=== PATIENT | female | born 2000 | race Two or more races ===

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

== ENCOUNTER 2018-04-26 11:06 | Emergency (ER) | payer SELFPAY ==
[2018-04-26 11:23] VITALS: TEMP 98.2; BMI 26.6
[2018-04-26] MEDS ORDERED: IBUPROFEN 600 MG TABLET (FP) PO ONE ×2 (12:53→12:59)
--- NOTE | 2018-04-26 13:00 | PDOC ---
History of Present Illness - General Chief Complaint: Wound Stated Complaint: BOIL ON LT BUTTCHECK Time Seen by Provider: 04/26/18 11:51 History Source: Patient Exam Limitations: No Limitations - History of Present Illness Initial Comments: 04/26/18 13:14 Patient is a 17-year-old female with no past medical history who presents to the ER today for 4 days of an abscess to her left butt cheek. Patient states that it hurts to sit down and she cannot find a comfortable position. She states she has tried warm water soaks at home with little relief of her symptoms. Patient is currently on her menstrual cycle. Denies fevers, chills, nausea, vomiting, diarrhea, frequency, urgency and hematuria. Past History - Travel Traveled outside of the country in the last 30 days: No Close contact w/someone who was outside of country & ill: No - Past Medical History Allergies/Adverse Reactions: Allergies Allergy/AdvReac Type Severity Reaction Status Date / Time No Known Allergies Allergy Verified 04/26/18 11:20 Home Medications: Ambulatory Orders Cephalexin Monohydrate [Keflex -] 500 mg PO BID #14 capsule 04/26/18 Ibuprofen 600 mg PO Q6H #30 tablet 04/26/18 Sulfamethoxazole/Trimethoprim [Bactrim Ds -] 1 tab PO BID #14 tablet 04/26/18 Asthma: Yes COPD: No - Suicide/Smoking/Psychosocial Hx Smoking History: Unknown if ever smoked Have you smoked in the past 12 months: No Hx Alcohol Use: No Drug/Substance Use Hx: No Review of Systems - Review of Systems Able to Perform ROS?: Yes Comments:: 04/26/18 13:15 CONSTITUTIONAL: Absent: fever, chills, diaphoresis, generalized weakness, malaise, loss of appetite GENITOURINARY: Absent: dysuria, frequency, urgency, hesitancy, hematuria, flank pain, genital pain MUSCULOSKELETAL: Absent: myalgia, arthralgia, joint swelling SKIN: Present: abscess Absent: rash, itching, pallor HEMATOLOGIC/IMMUNOLOGIC: Absent: easy bleeding, easy bruising, lymphadenopathy, frequent infections NEUROLOGIC: Absent: headache, focal weakness or paresthesias, dizziness, unsteady gait, seizure, mental status changes, bladder or bowel incontinence PSYCHIATRIC: Absent: anxiety, depression, suicidal or homicidal ideation, hallucinations. Is the patient limited Citizen Of [place] proficient: No *Physical Exam - Vital Signs Last Vital Signs Temp Pulse Resp BP Pulse Ox 98.2 F 85 18 112/61 100 04/26/18 11:20 04/26/18 11:20 04/26/18 11:20 04/26/18 11:20 04/26/18 11:20 - Physical Exam Comments: 04/26/18 13:20 GENERAL: Well developed, well nourished. Awake and alert. No acute distress. EXTREMITIES: No cyanosis. No clubbing. No edema. No calf tenderness. SKIN: 2cm round abscess to the L gluteal fold with 2cm of surrounding cellulitis Warm and dry. Normal capillary refill. No jaundice. NEUROLOGICAL: Alert, awake, appropriate. Cranial nerves 2-12 intact. No deficits to light touch and temperature in face, upper extremities and lower extremities. No motor deficits in the in face, upper extremities and lower extremities. Normoreflexic in the upper and lower extremities. Normal speech. Toes are down- going bilaterally. Gait is normal without ataxia. PSYCHIATRIC: Cooperative. Good eye contact. Appropriate mood and affect. Moderate Sedation - Procedure Monitoring Vital Signs: Procedure Monitoring Vital Signs Temperature 98.2 F 04/26/18 11:20 Pulse Rate 85 04/26/18 11:20 Respiratory Rate 18 04/26/18 11:20 Blood Pressure 112/61 04/26/18 11:20 O2 Sat by Pulse Oximetry (%) 100 04/26/18 11:20 Procedures - Incision and Drainage I&D Site: Left: Buttock Anesthesia: 1% Lidocaine Volume(ml): 6 Blade Size: 11 Attempts: 1 Iodinated Packin/4 in Plain Packing: No Medical Decision Making - Medical Decision Making 04/26/18 13:22 A: Patient is a 17-year-old female with no past medical history who presents to the ER today for a 2cm round abscess to her left buttock for 4 days. P: Abscess is fluctuant at this time and may be drained. Area was cleaned with Betadine and anesthetized with 6 mm of 1% lidocaine. Wound was then incised with an 11 blade. Large amount of of purulent fluid drained. Wound was explored and loculations were broken up. Wound was then flushed with normal saline. Wound culture obtained. Quarter-inch iodinated packing placed. Patient placed on Bactrim and Keflex for skin infection as well as abscess. patient told to return in 2 days to have the packing removed and for wound check. Discharge home I discussed the physical exam findings, ancillary test results and final diagnoses with the patient. I answered all of the patient's questions. The patient was satisfied with the care received and felt comfortable with the discharge plan and treatment plan. The Patient agrees to follow up with the primary care physician/specialist within 24-72 hours. Return precautions were given. *DC/Admit/Observation/Transfer Diagnosis at time of Disposition: Abscess - Discharge Dispostion Disposition: HOME Condition at time of disposition: Stable Decision to Admit order: No - Prescriptions Prescriptions: Cephalexin Monohydrate [Keflex -] 500 mg PO BID #14 capsule Ibuprofen 600 mg PO Q6H #30 tablet Sulfamethoxazole/Trimethoprim [Bactrim Ds -] 1 tab PO BID #14 tablet - Referrals Referrals: Vasile Bonilla MD [Staff Physician] - - Patient Instructions Printed Discharge Instructions: DI for Skin Abscess Additional Instructions: You have cellulitis and an abscess. This is a skin infection. Your abscess was drained today Please take the Bactrim and Keflex twice a day for one week. Please take all the antibiotics even if you feel better. Please avoid shaving the skin around the area of redness. You may take Tylenol or Motrin as needed for pain. follow the manufacture's instructions Return to the ED in 2 days for a wound check and to have the packing removed. Return to the emergency department if you have worsening redness, fevers, increasing pain, or have any changes in your symptoms. - Post Discharge Activity
[2018-04-26 13:12] VITALS: BP 110/60; PULSE 83
== END 2018-04-26 13:12 | disposition home or self-care (01) ==
LOC: JER 11:06 → JERFT 11:06 → JER 13:12
PROC: 0J990ZZ Drainage of Buttock Subcutaneous Tissue and Fascia, Open Approach (ICD-10-PCS; principal; 2018-04-26)
DX: L02.31 Cutaneous abscess of buttock (principal); L03.317 Cellulitis of buttock
CPT/HCPCS: 87070; 87077; 87205; 99282-25

== ENCOUNTER 2018-04-28 05:12 | Emergency (ER) | payer SELFPAY ==
[2018-04-28] MEDS ORDERED: IBUPROFEN 600 MG TABLET (FP) PO ONE ×2 (05:54→06:31)
[2018-04-28 06:21] VITALS: BP 129/63; PULSE 91; TEMP 98.4; BMI 25.0
[2018-04-28] MEDS ORDERED: ACETAMINOPHEN 325 MG TABLET (FP) PO ONE (07:21)
[2018-04-28] MEDS ORDERED: CEPHALEXIN MONOHYDRATE 500 MG CAPSULE (UD) PO ONE (07:21)
[2018-04-28] MEDS ORDERED: IBUPROFEN 400 MG TABLET (FP) PO ONE (07:21)
[2018-04-28] MEDS ORDERED: SULFAMETHOXAZOLE/TRIMETHOPRIM 800MG/160MG D.S. TABLET PO ONE (07:21)
[2018-04-28] MEDS ORDERED: SULFAMETHOXAZOLE/TRIMETHOPRIM 800MG/160MG D.S. TABLET ONE (07:37)
[2018-04-28] MEDS ORDERED: ACETAMINOPHEN 325 MG TABLET (FP) ONE (07:37)
[2018-04-28] MEDS ORDERED: CEPHALEXIN MONOHYDRATE 500 MG CAPSULE (UD) ONE (07:38)
--- NOTE | 2018-04-28 07:39 | PDOC ---
Suture Removal/Wound Check HPI - History of Present Illness Chief Complaint: Pain, Acute Stated Complaint: ABSCESS Time Seen by Provider: 04/28/18 07:07 History Source: Yes: Patient - Previous ED Treatment Type of procedure performed on last visit: Yes: I&D of Abscess Tetanus Immunization: Yes: Up to Date Past History - Past Medical History Allergies/Adverse Reactions: Allergies Allergy/AdvReac Type Severity Reaction Status Date / Time No Known Allergies Allergy Verified 04/28/18 06:14 Home Medications: Ambulatory Orders NK [No Known Home Medication] 04/28/18 Asthma: Yes COPD: No - Suicide/Smoking/Psychosocial Hx Smoking History: Never smoked Have you smoked in the past 12 months: No Information on smoking cessation initiated: No Hx Alcohol Use: No Drug/Substance Use Hx: No Suture Removal/Wound Check PE - Physical Exam Laceration/Wound Check Symptoms: reports: Pain. denies: Fever, Chills, Redness *Review of Systems - Review of Systems Constitutional: No: Chills, Fever *Physical Exam - Vital Signs Last Vital Signs Temp Pulse Resp BP Pulse Ox 98.4 F 91 H 20 129/63 98 04/28/18 05:15 04/28/18 05:15 04/28/18 05:15 04/28/18 05:15 04/28/18 05:15 - Physical Exam General Appearance: Yes: Appropriately Dressed. No: Apparent Distress HEENT: positive: Normal Voice Neck: positive: Supple Respiratory/Chest: negative: Respiratory Distress Integumentary: positive: Other (well healing abscess, packing removed w/ no secretion or e/o re-accumulation) Neurologic: positive: Fully Oriented, Alert, Normal Mood/Affect Moderate Sedation - Procedure Monitoring Vital Signs: Procedure Monitoring Vital Signs Temperature 98.4 F 04/28/18 05:15 Pulse Rate 91 H 04/28/18 05:15 Respiratory Rate 20 04/28/18 05:15 Blood Pressure 129/63 04/28/18 05:15 O2 Sat by Pulse Oximetry (%) 98 04/28/18 05:15 Medical Decision Making - Medical Decision Making 04/28/18 07:39 17-year-old female, no sig hx, seen in ED 2 days ago for L buttock abscess, s/p I&D and sent home with Bactrim, Keflex and Motrin, which pt states she was unable to fill because her pharmacy was closed over the weekend, here with continued pain. Denies fever or chills See exam Wound check of abscess Appears to be healing well Packing removed w/ no e/o re-accumulation Dose of abx given here as was unable to fill rx over the weekend -Dc to fill rxs and to return to ER as needed *DC/Admit/Observation/Transfer Diagnosis at time of Disposition: Wound check, abscess - Discharge Dispostion Disposition: HOME Condition at time of disposition: Good - Referrals - Patient Instructions Additional Instructions: Your wound appears to be healing. Please take antibiotics and pain meds as directed Return to ER if symptoms worsen as discussed today - Post Discharge Activity Forms/Work/School Notes: Back to Work
== END 2018-04-28 07:47 | disposition home or self-care (01) ==
LOC: JER 05:12
DX: Z48.817 Encounter for surgical aftercare following surgery on the skin and subcutaneous tissue (principal); Z48.01 Encounter for change or removal of surgical wound dressing
CPT/HCPCS: 99281-25